=== PATIENT | female | born 1945 | race African-American/Black ===

== ENCOUNTER 2020-04-05 11:14 | Emergency (ER) | payer MEDICARE, OTHER ==
[~2020-04-05] VITALS: Ht 167.6 cm; Wt 73.0 kg
[2020-04-05] MEDS ORDERED: ONDANSETRON HCL 4MG/2ML INJ IV STA (13:01)
[2020-04-05] MEDS ORDERED: MORPHINE SULFATE 4 MG/ML CPJ (NOT FOR IM USE) IV STA (13:01)
[2020-04-05] MEDS ORDERED: TETANUS, DIPHTHERIA, PERTUSSIS VAC/PF 0.5ML (>7YR OLD) IM ONE (13:15)
[2020-04-05 15:21] VITALS: BP 114/62
== END 2020-04-05 18:17 | disposition home or self-care (01) ==
LOC: ER 12:49
DX: S61.256A Open bite of right little finger without damage to nail, initial encounter (principal); S61.246A Puncture wound with foreign body of right little finger without damage to nail, initial encounter; L03.011 Cellulitis of right finger; E11.9 Type 2 diabetes mellitus without complications; I10 Essential (primary) hypertension; W55.01XA Bitten by cat, initial encounter; Y93.9 Activity, unspecified; Y92.9 Unspecified place or not applicable
CPT/HCPCS: 73140; 90471; 90715; 93005; 96374; 96375; 99284; J2270; J2405

== ENCOUNTER 2021-12-17 16:37 | Emergency (ER) | payer OTHER ==
[~2021-12-17] VITALS: Ht 165.1 cm; Wt 70.0 kg
[2021-12-17] MEDS ORDERED: ACETAMINOPHEN 325MG TABLET PO STA (17:00)
[2021-12-18 01:30] VITALS: BP 132/93
[2021-12-30] MEDS ORDERED: VALS1TAB80 PO (11:31)
[2021-12-30] MEDS ORDERED: MULT-1146 MT (11:31)
[2021-12-30] MEDS ORDERED: DULO60CA64 MT (11:31)
[2021-12-30] MEDS ORDERED: SIMV-43 MT (11:31)
== END 2021-12-18 01:55 | disposition home or self-care (01) ==
LOC: ER 16:37
DX: R07.81 Pleurodynia (principal); E11.9 Type 2 diabetes mellitus without complications; I10 Essential (primary) hypertension
CPT/HCPCS: 71045; 99285

== ENCOUNTER 2022-05-11 19:29 | Emergency (ER) | payer OTHER, MEDICARE ==
[~2022-05-11] VITALS: Ht 172.7 cm; Wt 59.0 kg
[~2022-05-11 19:29] MED LIST: DULO60CA64 MT; MULT-1146 MT; SIMV-43 MT; VALS1TAB80 PO
[2022-05-12 12:44] VITALS: BP 164/77
== END 2022-05-12 12:45 ==
LOC: ER 19:29
DX: S80.822A Blister (nonthermal), left lower leg, initial encounter (principal); E11.9 Type 2 diabetes mellitus without complications; I10 Essential (primary) hypertension; I69.354 Hemiplegia and hemiparesis following cerebral infarction affecting left non-dominant side; X58.XXXA Exposure to other specified factors, initial encounter; Y93.89 Activity, other specified; Y92.9 Unspecified place or not applicable
CPT/HCPCS: 99285

== ENCOUNTER 2022-11-01 21:59 | Inpatient (IN) | payer OTHER ==
[~2022-11-01] VITALS: Ht 165.1 cm; Wt 63.7 kg
[2022-11-01] MEDS ORDERED: IPRATROPIUM BROMIDE (0.02%) 0.5MG/2.5ML NEB HHN STA (22:34)
[2022-11-01] MEDS ORDERED: ALBUTEROL (0.083%) 2.5MG/3ML NEB HHN STA (22:34)
[2022-11-02] MEDS ORDERED: ALBUTEROL (0.083%) 2.5MG/3ML NEB ONE (01:19)
[2022-11-02] MEDS ORDERED: IPRATROPIUM BROMIDE (0.02%) 0.5MG/2.5ML NEB ONE (01:20)
[2022-11-02 01:39] LABS: BASOPHILS % 0.2 % (0.0-2.0); EOSINOPHILS % 4.9 % (0.0-5.0); HEMATOCRIT. 37.3 % (36.0-48.0); HEMOGLOBIN. 12.6 g/dL (12.0-16.0); MEAN CORPUSCULAR HEMOGLOBIN 30.6 pg (28.0-32.0); MEAN CORPUSCULAR VOLUME 90.9 fL (81.0-99.0); MEAN PLATELET VOLUME 8.9 fl (7.4-10.4); MONOCYTES % 7.2 % (2.0-8.0); NEUTROPHILS % 63.7 % (40.0-76.0); PLATELET 227 x1000/uL (130-400); RED BLOOD CELL COUNT 4.11 mill/uL (4.2-5.4)
[2022-11-02 01:45] LABS: CHLORIDE 105 mEq/L (98-107)
[2022-11-02 03:06] LABS: PARTIAL THROMBOPLASTIN TIME 45.5 sec (23.4-31.0); PROTHROMBIN TIME 10.9 sec (9.6-11.0)
[2022-11-02 10:00] VITALS: BP 160/66
[2022-11-02 10:25] VITALS: BP 142/68
[2022-11-02] MEDS ORDERED: ACETAMINOPHEN 325MG TABLET PO PRN (11:15)
[2022-11-02] MEDS ORDERED: ONDANSETRON HCL 4MG/2ML INJ IV PRN ×2 (11:15→12:00)
[2022-11-02 12:00] VITALS: BP 146/66
[2022-11-02] MEDS ORDERED: CLONIDINE 0.1MG TABLET PO PRN (12:00)
[2022-11-02] MEDS ORDERED: IPRATROPIUM BROMIDE (0.02%) 0.5MG/2.5ML NEB HHN PRN (12:00)
[2022-11-02] MEDS ORDERED: IPRATROPIUM/ALBUTEROL 0.5-3(2.5)MG/3ML NEB HHN PRN (12:00)
[2022-11-02] MEDS ORDERED: ALBUTEROL (0.083%) 2.5MG/3ML NEB HHN PRN (12:00)
[2022-11-02] MEDS: CEFTRIAXONE 1,000 MG in DEXTROSE 5% WATER 50 ML IV SCH (12:58)
[2022-11-02] MEDS: ENOXAPARIN 40MG/0.4ML SYR SUBCUT SCH (12:59)
[2022-11-02] MEDS ORDERED: AZITHROMYCIN 500 MG in DEXT 5% WATER 250 ML IV SCH (13:00)
[2022-11-02 16:00] VITALS: BP 150/66
[2022-11-02 20:00] VITALS: BP 124/58
[2022-11-03] VITALS: BP 141/54
[2022-11-03 04:00] VITALS: BP 146/83
[2022-11-03 08:00] VITALS: BP 149/71
[2022-11-03] MEDS: ENOXAPARIN 40MG/0.4ML SYR SUBCUT SCH (09:47)
[2022-11-03 12:00] VITALS: BP 135/72
[2022-11-03] MEDS ORDERED: POTASSIUM CHLORIDE 20MEQ TABLET SR PO SCH (12:30)
[2022-11-03] MEDS: CEFTRIAXONE 1,000 MG in DEXTROSE 5% WATER 50 ML IV SCH (13:33)
[2022-11-03 16:00] VITALS: BP 121/64
[2022-11-03 16:47] VITALS: BP 121/64
== END 2022-11-03 17:55 | DRG 178 ==
LOC: ER 21:59 → 7EST 11-02 03:54 → EDBEDREQSVC 11-02 08:00
PROVIDERS: ADMIT Internal Medicine; ATTEND Internal Medicine
DX: U07.1 COVID-19 (principal); E44.1 Mild protein-calorie malnutrition; I69.359 Hemiplegia and hemiparesis following cerebral infarction affecting unspecified side; J84.9 Interstitial pulmonary disease, unspecified; I10 Essential (primary) hypertension; E11.9 Type 2 diabetes mellitus without complications; E87.6 Hypokalemia
CPT/HCPCS: 36415; 71045; 80053; 82962; 83605; 83880; 84484; 85025; 85379; 87426; 87804; 94640; 99285; C1893; C9803; J0456; J0696; J1650; J7060

== ENCOUNTER 2022-12-31 04:08 | Emergency (ER) | payer OTHER ==
[~2022-12-31] VITALS: Ht 172.7 cm; Wt 60.3 kg
[2022-12-31] MEDS ORDERED: DEXAMETHASONE 4MG TABLET PO ONE (04:30)
[2022-12-31] MEDS ORDERED: IPRATROPIUM/ALBUTEROL 0.5-3(2.5)MG/3ML NEB HHN ONE (04:30)
[2022-12-31 05:48] LABS: BASOPHILS % 0.4 % (0.0-2.0); EOSINOPHILS % 5.9 % (0.0-5.0); HEMATOCRIT. 43.6 % (36.0-48.0); HEMOGLOBIN. 14.4 g/dL (12.0-16.0); MEAN CORPUSCULAR HEMOGLOBIN 30.2 pg (28.0-32.0); MEAN CORPUSCULAR VOLUME 91.4 fL (81.0-99.0); MEAN PLATELET VOLUME 9.4 fl (7.4-10.4); MONOCYTES % 6.4 % (2.0-8.0); NEUTROPHILS % 45.3 % (40.0-76.0); PLATELET 233 x1000/uL (130-400); RED BLOOD CELL COUNT 4.77 mill/uL (4.2-5.4); RED CELL DISTRIBUTION WIDTH 14.5 % (11.6-14.6)
[2022-12-31 05:52] LABS: BG BASE EXCESS -2.6 mmol/L (-2.0-2.0); BG CARBOXYHEMOGLOBIN 2.3 % (0.5-1.5); BG FRACTION INSPIRED OXYGEN 21; BG HCO3 ACT 21.5 mmol/L (22.0-26.0); BG METHEMOGLOBIN 0.3 % (0.0-1.5); BG OXYGEN SATURATION 91.8 % (92.0-98.5); BG OXYHEMOGLOBIN 89.4 % (94.0-97.0); BG PCO2 35.6 mmHg (35.0-45.0); BG PH 7.399 (7.350-7.450); BG PO2 60.8 mmHg (75.0-100.0); BG SAMPLE SITE RIGHT RADIAL; BG TOTAL HEMOGLOBIN 15.3 g/dL (12.0-18.0); BG VENT MODE ROOM AIR
[2022-12-31 05:55] LABS: CHLORIDE 107 mEq/L (98-107)
[2022-12-31 06:06] VITALS: PULSE 87; RESP 20; O2SAT 91
[2022-12-31 12:30] VITALS: BP 141/69; PULSE 83; RESP 18; TEMP 96.3
[2022-12-31 15:12] VITALS: BP 141/69; PULSE 83; TEMP 96.3; O2SAT 100
== END 2022-12-31 15:09 | disposition admitted as inpatient to this hospital (09) ==
LOC: ER 04:08 → UNDOADMIN 10:45 → 7EST 10:45 → EDBEDREQ 10:48 → EDBEDREQTM 10:48 → UNDODISIN 15:47
DX: R09.02 Hypoxemia (principal); E11.9 Type 2 diabetes mellitus without complications; I10 Essential (primary) hypertension; Z20.822 Contact with and (suspected) exposure to COVID-19; Z86.73 Personal history of transient ischemic attack (TIA), and cerebral infarction without residual deficits; Z79.4 Long term (current) use of insulin
CPT/HCPCS: 99285; 71045; 87426; 80053; 83880; 85025; 84484; 36415; 94640; 82805; 82375; 93005; 36600; J8540; C9803

== ENCOUNTER 2025-08-19 14:23 | Emergency (ER) | payer OTHER, MEDICAID ==
[~2025-08-19] VITALS: Ht 162.6 cm; Wt 73.0 kg
[2025-08-19 14:25] VITALS: O2SAT 97
[2025-08-19] MEDS: ACETAMINOPHEN 325MG TABLET PO ONE (15:55)
[2025-08-19] MEDS ORDERED: ACET-2708 MT (17:10)
[2025-08-19 17:46] VITALS: TEMP 36.8
[2025-08-19] MEDS: CLONIDINE 0.1MG TABLET PO ONE (19:34)
[2025-08-20 04:51] VITALS: BP 140/70; PULSE 75; RESP 18; O2SAT 98
== END 2025-08-20 04:55 | disposition home or self-care (01) ==
LOC: ER 14:23
DX: S00.03XA Contusion of scalp, initial encounter (principal); S80.211A Abrasion, right knee, initial encounter; I10 Essential (primary) hypertension; E78.00 Pure hypercholesterolemia, unspecified; E11.9 Type 2 diabetes mellitus without complications; Z86.73 Personal history of transient ischemic attack (TIA), and cerebral infarction without residual deficits; Z79.899 Other long term (current) drug therapy; W01.10XA Fall on same level from slipping, tripping and stumbling with subsequent striking against unspecified object, initial encounter; Y93.89 Activity, other specified; Y92.89 Other specified places as the place of occurrence of the external cause; Y99.8 Other external cause status
CPT/HCPCS: 82962; 99285